=== PATIENT | male | born 1975 | race Caucasian/White ===

== ENCOUNTER → 2024-03-14 14:41 | Outpatient (REF) | payer OTHER, SELFPAY | LOC: RAD 14:41 | PROVIDERS: ATTENDING PHYSICIAN Emergency Medicine | DX: M25.522 Pain in left elbow (principal); M79.632 Pain in left forearm | CPT/HCPCS: 73080; 73090 ==

== ENCOUNTER 2024-05-17 03:18 | Emergency (ER) | payer OTHER, SELFPAY ==
[2024-05-17] VITALS (7 sets, daily range): BP systolic 120–191; BP diastolic 79–100; BMI 35.2
[2024-05-17] MEDS: PEPCID 20 MG IV (03:37)
[2024-05-17] MEDS: NSS 1000 IV (03:37)
[2024-05-17] MEDS: DECADRON 10 MG IV (03:38)
[2024-05-17] MEDS: BENADRYL 25 MG IV ×2 (03:38→05:18)
[2024-05-17 03:51] LABS: % Basophils 0.5 % (0-2); % Eosinophils 3.8 % (0-6); % Immature Granulocytes 0.2 % (0-0.5); % Lymphocytes 29.8 % (20.5-51.1); % Monocytes 7.2 % (1.7-9.3); % Neutrophils 58.5 % (42.2-75.2); Absolute Eosinophils 0.3 10^3/uL (0-0.7); Absolute Lymphocytes 2.5 10^3/uL (1.2-3.4); Absolute Monocytes 0.6 10^3/uL (0.1-0.6); Absolute Neutrophils 4.9 10^3/uL (1.4-6.5); Hematocrit 41.1 % (39.0-52.0); Hemoglobin 14.2 g/dL (13.0-18.0); Mean Corp Hgb Conc. 34.5 g/dL (33.0-37.0); Mean Corpuscular Hgb 31.9 pg (27.0-31.0); Mean Corpuscular Volume 92.4 fL (80.0-94.0); Mean Platelet Volume 11.5 fL (7.4-10.4); Nucleated Red Blood Cells % 0 % (-); Platelet Count 178 10^3/uL (130-400); Red Blood Cell Count 4.45 10^6/uL (4.70-6.10); Red Cell Dist. Width 12.4 % (11.5-14.5); White Blood Cell Count 8.4 10^3/uL (4.8-10.8)
--- NOTE | 2024-05-17 04:03 | ED.GENMED ---
History of Present Illness
<DO Kasey Mendoza Last Filed: 05/17/24 05:16>
General
Chief Complaint: Oral/Mouth Problem
Source: patient and spouse
Exam Limitations: none
Time Seen by Provider: 05/17/24 03:26
Nursing documentation reviewed up to this point in time: agreed with
History of Present Illness
History of Present Illness:
Pleasant 49-year-old male presents with tongue swelling. Patient was recently started on Keflex and Bactrim for bug bites. Patient states 1 hour prior to arrival he awakened with swelling of his tongue. He reports no difficulty swallowing or
respiratory distress. Denies fever, chills, nausea or vomiting. Denies chest pain. Reports no known allergies. Denies being on any MARIA G inhibitors or ARBs.
Review of Systems
<DO Kasey Mendoza Last Filed: 05/17/24 05:16>
Review of Systems
Allergies reviewed?: Yes
Other source history: family
All Other Systems: ROS reviewed and negative except as documented in HPI and ROS
Constitutional: Reports no symptoms
EENT: Reports mouth swelling
Respiratory: Reports no symptoms
Cardiac: Reports no symptoms
ABD/GI: Reports no symptoms
: Reports no symptoms
Musculoskeletal: Reports no symptoms
Skin: Reports no symptoms
Neurological: Reports no symptoms
Endocrine: Reports no symptoms
Hematologic/Lymphatic: Reports no symptoms
Psychiatric: Reports no symptoms
Phy Exam
<DO Kasey Mendoza Last Filed: 05/17/24 05:16>
General Physical Exam
General Presentation: well appearing and no apparent distress
General Skin: warm and dry
General Habitus: normal
General Mental: alert
General Hydration: appears well hydrated
ENT Exam
ENT Exam: swallowing well
Additional ENT: Swollen tongue consistent with angioedema
Eye Exam
Eye Exam: PERRL, cornea clear and conjunctiva normal
Cardiovascular Exam
Cardiovascular Exam: regular rate/rhythm, no edema, no murmur and normal peripheral pulses
Pulmonary Exam
Pulmonary Exam: lungs clear, no respiratory distress, no rales, no crackles, no rhonchi, no stridor, no wheezing and no cough
Gastrointestinal Exam
Gastrointestinal Exam: normal bowel sounds, non tender, soft, no organomegaly, no pulsatile mass and non distended
Neurological Exam
Neurological Exam: alert, oriented x3, no motor deficits and speech normal
Musculoskeletal Exam
Musculoskeletal Exam: full ROM and no edema
Skin Exam
Skin Exam: normal color, warm/dry, no rash and no petechia
Psychiatric Exam
Psychiatric Exam: normal mood/affect
Course
<Kaleb Holly, DO - Last Filed: 05/17/24 05:16>
Orders/Labs/Results
Orders:
Orders
05/17/24 03:26
Cardiac Monitoring- Treatment ONCE
0.9% Sodium Chloride 1000 ml [Nss] 1,000 ml IV BOLUS
Dexamethasone Sod Phosphate [Decadron] 10 mg IV NOW STA
Diphenhydramine [Benadryl] 25 mg IV NOW STA
Famotidine [Pepcid] 20 mg IV NOW STA
Pulse Ox/cont/shift [RESP] Stat
Quantity: 1
05/17/24 03:27
Electrocardiogram (*1) Stat
Reason for Study: Other
Other Reason for Exam: Allergy
EKG- Treatment ONCE
05/17/24 03:36
Complete Blood Count/With Diff Urgent
05/17/24 05:10
Diphenhydramine [Benadryl] 25 mg IV NOW STA
Abnormal Lab Results
05/17/24
03:36
RBC 4.45 L 10^6/uL
(4.70-6.10)
MCH 31.9 H pg
(27.0-31.0)
MPV 11.5 H fL
(7.4-10.4)
05/17/24 03:36
Vital Signs
Initial and Last Documented VS:
Initial Vital Signs
Pulse Resp BP Pulse Ox
96 18 191/100 99
05/17/24 03:20 05/17/24 03:20 05/17/24 03:20 05/17/24 03:20
Last Documented Vital Signs
Temp Pulse Resp BP Pulse Ox
98.1 F 80 11 130/79 98
05/17/24 07:43 05/17/24 07:06 05/17/24 07:06 05/17/24 07:06 05/17/24 07:06
<Jose Daniel Ruvalcaba, DO - Last Filed: 05/17/24 07:48>
Orders/Labs/Results
Orders:
Orders
05/17/24 03:26
Cardiac Monitoring- Treatment ONCE
0.9% Sodium Chloride 1000 ml [Nss] 1,000 ml IV BOLUS
Dexamethasone Sod Phosphate [Decadron] 10 mg IV NOW STA
Diphenhydramine [Benadryl] 25 mg IV NOW STA
Famotidine [Pepcid] 20 mg IV NOW STA
Pulse Ox/cont/shift [RESP] Stat
Quantity: 1
05/17/24 03:27
Electrocardiogram (*1) Stat
Reason for Study: Other
Other Reason for Exam: Allergy
EKG- Treatment ONCE
05/17/24 03:36
Complete Blood Count/With Diff Urgent
05/17/24 05:10
Diphenhydramine [Benadryl] 25 mg IV NOW STA
Abnormal Lab Results
05/17/24
03:36
RBC 4.45 L 10^6/uL
(4.70-6.10)
MCH 31.9 H pg
(27.0-31.0)
MPV 11.5 H fL
(7.4-10.4)
05/17/24 03:36
Vital Signs
Initial and Last Documented VS:
Initial Vital Signs
Pulse Resp BP Pulse Ox
96 18 191/100 99
05/17/24 03:20 05/17/24 03:20 05/17/24 03:20 05/17/24 03:20
Last Documented Vital Signs
Temp Pulse Resp BP Pulse Ox
98.1 F 80 11 130/79 98
05/17/24 07:43 05/17/24 07:06 05/17/24 07:06 05/17/24 07:06 05/17/24 07:06
<Jose Daniel Ruvalcaba, DO - Last Filed: 05/17/24 07:48>
*Critical Care Note
Total Time (30-74mins, 75-104mins- exclusive of procedures): Not Applicable
<Kaleb Holly, DO - Last Filed: 05/17/24 05:16>
Update Note
Update Note:
05/17/2024 0425 AM: Patient's showing some improvement
<Jose Daniel Ruvalcaba, DO - Last Filed: 05/17/24 07:48>
Update Note
Update Note:
05/17/2024 0425 AM: Patient's showing some improvement
Dr. Ruvalcaba note, patient with improved tongue angioedema. Also mildly infected appearing left lower leg wound. Will treat with doxycycline. Patient will stop Keflex and Bactrim.
ED Attending Note
<Kaleb Holly, DO - Last Filed: 05/17/24 05:16>
-
Portions of this chart may have been created with voice recognition software.� Occasional wrong word or��sound alike� substitutions may have occurred due to the inherent limitations of voice recognition software.
Discharge Plan
Departure
Patient Disposition: Home (Routine Discharge)
Date of Disposition: 05/17/24
Time of Disposition: 07:44
Patient with high blood pressure during this ER visit?: Yes
Condition: Good
Discharge Problem:
Angioedema, Insect bite of left leg
Instructions: Angioedema, Allergic Reaction ED, Insect Bites and Stings ED, BLOOD PRESSURE
Prescriptions:
New
epinephrine [EpiPen] 0.3 mg/0.3 mL Auto-Injector
0.3 mg IM .STAT PRN (Reason: anaphylaxis) Qty: 1 0RF
prednisone 50 mg Tablet
50 mg PO DAILY Qty: 5 0RF
famotidine [Pepcid] 40 mg tablet
40 mg PO DAILY Qty: 10 0RF
diphenhydramine HCl [Benadryl] 25 mg capsule
25 mg PO TID PRN (Reason: allergy symptoms) Qty: 14 0RF
doxycycline hyclate 100 mg tablet
100 mg PO BID Qty: 20 0RF
No Action
sulfamethoxazole-trimethoprim [Sulfamethoprim DS] 800-160 mg Tablet
1 tab PO BID
cephalexin 500 mg Capsule
500 mg PO Q12H
Referrals:
Dayan Hoyos MD [Family Provider] -
Interventions
Interventions:
*Risk Screen - Suicide Last Done: 05/17/24 03:31
*General Assessment Last Done: 05/17/24 03:29
*Neglect/Abuse Screening Last Done: 05/17/24 03:30
ED- Fall Risk Assessment Last Done: 05/17/24 03:32
*ED COVID-19 Vaccine History Last Done: 05/17/24 03:29
Discharge Date and Time
Print Language: TELUGU
== END 2024-05-17 07:57 | disposition home or self-care (01) ==
LOC: EMR 03:18
PROVIDERS: EMERGENCY PHYSICIAN Student in an Organized Health Care Education/Training Program; FAMILY PHYSICIAN Emergency Medicine
DX: T78.3XXA Angioneurotic edema, initial encounter (principal); S80.862A Insect bite (nonvenomous), left lower leg, initial encounter; W57.XXXA Bitten or stung by nonvenomous insect and other nonvenomous arthropods, initial encounter
CPT/HCPCS: 99283; 96374; 96375; 96376; 85025; 93005

== ENCOUNTER 2024-05-28 12:11 | Emergency (ER) | payer OTHER, SELFPAY ==
[2024-05-28 12:21] VITALS: BP 116/76; BMI 33.0
[2024-05-28 12:31] VITALS: BP 134/91
[2024-05-28 13:00] VITALS: BP 133/93
[2024-05-28 14:00] VITALS: BP 122/85
--- NOTE | 2024-05-28 14:23 | ED.GENMED ---
History of Present Illness
<Li Bo PA-C - Last Filed: 05/28/24 21:29>
General
Chief Complaint: Allergic Reaction
Source: patient
Exam Limitations: none
Time Seen by Provider: 05/28/24 14:04
Nursing documentation reviewed up to this point in time: agreed with
History of Present Illness
History of Present Illness:
This is a 49 y/o male with no past medical history presenting to the emergency department today with concerns of lip swelling. Patient reports that he woke up at around 2 AM this morning when he noticed some mild lip swelling. Patient thought
nothing of it at the time went back to sleep. Patient woke up this morning and stated that his symptoms were still there. He subsequently took Benadryl at home. He went to urgent care where he received an IM dose of epinephrine at 7:30 am. Patient
states that he had no trouble breathing or chest tightness, no abdominal pain or nausea or vomiting at any point. Patient reported to urgent care where they gave him an IM dose of epinephrine and advised him to report to the emergency department.
Of note, patient reports that he has been on a new medication doxycycline for a insect bite and surrounding cellulitis he has had. He has been on this for 2 weeks and today he started developing these allergic symptoms. Of note, on 05/17/2024,
patient was seen by his primary for the same symptoms of cellulitis and bug bite where he was put on Keflex and Bactrim. After the first dose, patient developed angioedema and he was seen in the emergency department and treated and sent home with
an EpiPen but he has not picked this up from the pharmacy yet.
Patient was waiting in the emergency department and in the waiting room for around 2 hours before he was seen by me. Patient states that his symptoms have not gotten worse while he has been here.
Review of Systems
<Li Bo PA-C - Last Filed: 05/28/24 21:29>
Review of Systems
All Other Systems: ROS reviewed and negative except as documented in HPI and ROS
Phy Exam
<Li Bo PA-C - Last Filed: 05/28/24 21:29>
Physical Exam
Physical Exam:
General: Patient is well appearing and in no acute distress; non-toxic
Skin: Warm and dry, small area of urticaria below the left eyebrow. Small superficial circular shallow wound on the left anterior lower extremity, no active drainage, not actively bleeding. Small area of erythema that is slightly tender to the
touch.
Head: Normocephalic, atraumatic
Eyes: Sclera non-icteric. EOMs intact.
Cardiac: Regular rate and rhythm, no murmurs
Peripheral Vascular: No lower extremity swelling or edema.
Pulm: Normal respiratory effort, no wheezes, rales, rhonchi bilaterally.
Abdomen: No abdominal tenderness to palpation.
Neuro: CN II-XII intact, no focal neurologic deficits.
Psychiatric: Appropriate mood and affect.
Course
<LISA Villagomez Last Filed: 05/28/24 21:29>
Orders/Labs/Results
Orders:
Orders
05/28/24 14:33
0.9% Sodium Chloride 1000 ml [Nss] 1,000 ml IV BOLUS
Famotidine [Pepcid] 20 mg IV NOW STA
05/28/24 14:42
Dexamethasone Sod Phosphate [Decadron] 10 mg IV NOW STA
05/28/24 15:06
Complete Blood Count/With Diff Urgent
Comprehensive Metabolic Panel Urgent
05/28/24 16:04
Diphenhydramine [Benadryl] 25 mg IV NOW STA
Abnormal Lab Results
05/28/24
15:06
WBC 11.9 H 10^3/uL
(4.8-10.8)
MCH 31.7 H pg
(27.0-31.0)
MPV 11.7 H fL
(7.4-10.4)
Abs Immat Gran (auto) 0.1 H 10^3/uL
(0-0.05)
Absolute Neuts (auto) 8.4 H 10^3/uL
(1.4-6.5)
Absolute Monos (auto) 0.7 H 10^3/uL
(0.1-0.6)
Carbon Dioxide 31 H mmol/L
(22-30)
Glucose 146 H mg/dl
(70-99)
Total Protein 5.9 L g/dl
(6.3-8.2)
05/28/24 15:06
05/28/24 15:06
Vital Signs
Initial and Last Documented VS:
Initial Vital Signs
Temp Pulse Resp BP Pulse Ox
97.8 F 110 16 116/76 96
05/28/24 12:21 05/28/24 12:21 05/28/24 12:21 05/28/24 12:21 05/28/24 12:21
Last Documented Vital Signs
Temp Pulse Resp BP Pulse Ox
97.8 F 74 12 133/106 97
05/28/24 12:21 05/28/24 16:15 05/28/24 16:15 05/28/24 16:00 05/28/24 13:12
<Leticia Perez, - Last Filed: 05/28/24 15:35>
Orders/Labs/Results
Orders:
Orders
05/28/24 14:33
0.9% Sodium Chloride 1000 ml [Nss] 1,000 ml IV BOLUS
Famotidine [Pepcid] 20 mg IV NOW STA
05/28/24 14:42
Dexamethasone Sod Phosphate [Decadron] 10 mg IV NOW STA
05/28/24 15:06
Complete Blood Count/With Diff Urgent
Comprehensive Metabolic Panel Urgent
05/28/24 16:04
Diphenhydramine [Benadryl] 25 mg IV NOW STA
Abnormal Lab Results
05/28/24
15:06
WBC 11.9 H 10^3/uL
(4.8-10.8)
MCH 31.7 H pg
(27.0-31.0)
MPV 11.7 H fL
(7.4-10.4)
Abs Immat Gran (auto) 0.1 H 10^3/uL
(0-0.05)
Absolute Neuts (auto) 8.4 H 10^3/uL
(1.4-6.5)
Absolute Monos (auto) 0.7 H 10^3/uL
(0.1-0.6)
Carbon Dioxide 31 H mmol/L
(22-30)
Glucose 146 H mg/dl
(70-99)
Total Protein 5.9 L g/dl
(6.3-8.2)
05/28/24 15:06
05/28/24 15:06
Vital Signs
Initial and Last Documented VS:
Initial Vital Signs
Temp Pulse Resp BP Pulse Ox
97.8 F 110 16 116/76 96
05/28/24 12:21 05/28/24 12:21 05/28/24 12:21 05/28/24 12:21 05/28/24 12:21
Last Documented Vital Signs
Temp Pulse Resp BP Pulse Ox
97.8 F 74 12 133/106 97
05/28/24 12:21 05/28/24 16:15 05/28/24 16:15 05/28/24 16:00 05/28/24 13:12
Deniselt;Li Bo PA-C - Last Filed: 05/28/24 21:29>
MDM/Problems Addressed
Differential Diagnosis Includes:
ddx include angioedema, anaphylaxis, contact dermatitis, drug eruption, seasonal allergies
MDM/Problems Addressed:
Allergic Reaction:
This is a 49 y/o male with no past medical history presenting to the emergency department today with concerns of lip swelling. Patient states that he recently started an antibiotic doxycycline for a persistent lower extremity rash. Patient has been
on this for 2 weeks before he started having the symptoms today. Of note, patient similar episode a few weeks ago after different antibiotic. Patient received a dose of epinephrine at 7:30 AM and since that time has had no new symptoms and no
worsening of his current symptoms. Patient was given Benadryl, a dose of Decadron, famotidine. IV here in the emergency department. CBC and CMP unremarkable. Patient reassessed multiple times and patient stable. Patient states that he has not
needed prescription for EpiPen's but at his pharmacy from last time he will pick it up today. Discussed podiatry follow-up for his persistent wound and discussed allergy follow-up for to determine the source of his allergy. Patient stable for
discharge.
Chronic conditions affecting care:
n/a
Acute Exacerbation and/or Progression of Chronic Illness:
n/a
<Li Bo PA-C - Last Filed: 05/28/24 21:29>
*Pulse Oximetry
Patient hypoxic: no
*Critical Care Note
Total Time (30-74mins, 75-104mins- exclusive of procedures): Not Applicable
Data Reviewed
Review of Other/Old Records Reveals: Records (Reviewed previous ER physician documentation from 05/17/2024 patient was seen for angioedema)
Source: patient and records
<Li Bo PA-C - Last Filed: 05/28/24 21:29>
Patient Management
Escalation/DeEscalation of care consider admission/obs:
Admit not indicated. Patient stable for discharge
ED Attending Note
<Li Bo PA-C - Last Filed: 05/28/24 21:29>
-
Portions of this chart may have been created with voice recognition software.� Occasional wrong word or��sound alike� substitutions may have occurred due to the inherent limitations of voice recognition software.
<Leticia Perez DO - Last Filed: 05/28/24 15:35>
ED Attending Note
Patient seen and examined by attending physician: Yes
I performed the substantive portion of visit, reviewed & personally made and approve the management plan that is documented in note by myself or ALEK.: Yes
I performed a history and physical exam of patient and discussed management with resident, I reviewed resident's note and agree with documented findings and plan of care.: Yes
ED Attending Note:
Patient seen and evaluated at bedside, 49-year-old male presenting for concern of allergic reaction. Patient seen on 05/17 after a bug bite to his left lower extremity. Patient had been treated with Bactrim, subsequently had angioedema. He was
switched to doxycycline. Patient on his eighth day of doxycycline. Today started to have lip swelling, went to urgent care and received epinephrine at 7:30 AM. Feels that the lip swelling is improving. Denies difficulty breathing. Reports that
he is still having some redness and pain to his left lower extremity. Denies fever. Denies numbness or tingling to the extremity. Denies known history of allergic reactions in the past. Vital signs on arrival significant for tachycardia.
On exam, patient well-appearing, no acute distress. No increased work of breathing. No stridorous respirations. Patient does have some mild swelling to the lower lip. Normal phonation of voice. Do suspect allergic reaction, unclear to what.
Lower suspicion for doxycycline, given the patient has been taking it for 8 days. Regardless, patient did receive epinephrine, will continue to monitor. Will also administer Decadron. On examination of the lower extremity. No significant signs
of infection. There is circumferential area where patient was bit at the medial aspect of the ankle. No surrounding erythema or swelling. No neurovascular compromise. Do not feel patient requires any additional antibiotics. Patient reports that
the wound has been there for a month however, reports history of poor circulation. Advise follow-up with podiatry versus wound care, as well as an case management assistant for formal allergy testing. Otherwise feel stable for discharge with continued outpatient
follow-up.
Discharge Plan
Departure
Patient Disposition: Home (Routine Discharge)
Date of Disposition: 05/28/24
Time of Disposition: 16:01
Patient with high blood pressure during this ER visit?: No
Condition: Good
Discharge Problem:
Allergic reaction, Insect bite of left leg
Instructions: Hives (DC), Allergic Reaction ED
Prescriptions:
No Action
sulfamethoxazole-trimethoprim [Sulfamethoprim DS] 800-160 mg Tablet
1 tab PO BID
cephalexin 500 mg Capsule
500 mg PO Q12H
epinephrine [EpiPen] 0.3 mg/0.3 mL Auto-Injector
0.3 mg IM .STAT PRN (Reason: anaphylaxis) Qty: 1 0RF
prednisone 50 mg Tablet
50 mg PO DAILY Qty: 5 0RF
famotidine [Pepcid] 40 mg tablet
40 mg PO DAILY Qty: 10 0RF
diphenhydramine HCl [Benadryl] 25 mg capsule
25 mg PO TID PRN (Reason: allergy symptoms) Qty: 14 0RF
doxycycline hyclate 100 mg tablet
100 mg PO BID Qty: 20 0RF
Referrals:
Dayan Hoyos MD [Family Provider] -
Donna Sorenson DPM [Specified Professional Personl] - Call in 1-3 days for appt
Maksim Ignacio MD [Community] - Call in 1-3 days for appt
Activity Restrictions/Additional Instructions:
As discussed, please call the attached numbers to follow-up with case management assistant and air sealing technician.
Please return emergency department should you experience any acute worsening of your symptoms, shortness of breath, fevers or chills, chest tightness or pain, abdominal pain, nausea or vomiting, weakness, difficulty walking, or any other signs or
symptoms concerning to you.
Please roll picker the epi pen from your pharmacy.
Please follow-up with your primary care provider.
Interventions
Interventions:
*Risk Screen - Suicide Last Done: 05/28/24 12:21
*General Assessment Last Done: 05/28/24 12:51
*Neglect/Abuse Screening Last Done: 05/28/24 12:21
ED- Fall Risk Assessment Last Done: 05/28/24 12:21
*ED COVID-19 Vaccine History Last Done: 05/28/24 12:51
*Nursing Disposition Last Done: 05/28/24 16:31
ED- Cardiac Assessment Last Done: 05/28/24 12:54
ED- Pulmonary Assessment Last Done: 05/28/24 13:13
ED-Skin Assessment Last Done: 05/28/24 12:55
Discharge Date and Time
Discharge Date/Time: 05/28/24 16:31
Print Language: [id number]
[2024-05-28 15:00] VITALS: BP 116/74
[2024-05-28] MEDS: NSS 1000 IV (15:08)
[2024-05-28] MEDS: DECADRON 10 MG IV (15:09)
[2024-05-28] MEDS: PEPCID 20 MG IV (15:09)
[2024-05-28 15:22] LABS: % Basophils 0.4 % (0-2); % Eosinophils 1.4 % (0-6); % Immature Granulocytes 0.4 % (0-0.5); % Lymphocytes 20.7 % (20.5-51.1); % Neutrophils 71.1 % (42.2-75.2); Absolute Basophils 0.1 10^3/uL (0-0.2); Absolute Eosinophils 0.2 10^3/uL (0-0.7); Absolute Immature Granulocytes 0.1 10^3/uL (0-0.05); Absolute Lymphocytes 2.5 10^3/uL (1.2-3.4); Absolute Monocytes 0.7 10^3/uL (0.1-0.6); Absolute Neutrophils 8.4 10^3/uL (1.4-6.5); Hematocrit 43.1 % (39.0-52.0); Mean Corp Hgb Conc. 34.8 g/dL (33.0-37.0); Mean Corpuscular Hgb 31.7 pg (27.0-31.0); Mean Corpuscular Volume 91.1 fL (80.0-94.0); Mean Platelet Volume 11.7 fL (7.4-10.4); Nucleated Red Blood Cells % 0 % (-); Platelet Count 188 10^3/uL (130-400); Red Blood Cell Count 4.73 10^6/uL (4.70-6.10); Red Cell Dist. Width 12.1 % (11.5-14.5); White Blood Cell Count 11.9 10^3/uL (4.8-10.8)
[2024-05-28 15:31] LABS: ALT (SGPT) 44 U/L (0-50); AST (SGOT) 23 U/L (17-59); Albumin 3.7 g/dl (3.5-5.0); Alkaline Phosphatase 76 U/L (38-126); Blood Urea Nitrogen 19 mg/dl (9-20); Calcium 9.4 mg/dl (8.4-10.2); Carbon Dioxide 31 mmol/L (22-30); Chloride 103 mmol/L (98-107); Estimated Creatinine Clearance 105 ml/min; Glucose 146 mg/dl (70-99); Potassium 4.4 mmol/L (3.5-5.1); Sodium 139 mmol/L (135-145); Total Bilirubin 0.6 mg/dl (0.2-1.3); Total Protein 5.9 g/dl (6.3-8.2); eGFR > 60.00
[2024-05-28 16:00] VITALS: BP 133/106
[2024-05-28] MEDS: BENADRYL 25 MG IV (16:21)
== END 2024-05-28 16:31 | disposition home or self-care (01) ==
LOC: EMR 12:11
PROVIDERS: Physician Assistant; EMERGENCY PHYSICIAN Student in an Organized Health Care Education/Training Program; FAMILY PHYSICIAN Emergency Medicine
DX: T78.40XA Allergy, unspecified, initial encounter (principal); S80.862A Insect bite (nonvenomous), left lower leg, initial encounter; W57.XXXA Bitten or stung by nonvenomous insect and other nonvenomous arthropods, initial encounter
CPT/HCPCS: 99284; 96374; 96375 ×2; 96361; 80053; 85025

== ENCOUNTER 2024-05-31 07:12 | Emergency (ER) | payer OTHER, SELFPAY ==
[2024-05-31] VITALS (8 sets, daily range): BP systolic 115–148; BP diastolic 74–96; BMI 33.7
--- NOTE | 2024-05-31 07:35 | ED.GENMED ---
History of Present Illness
<Davida Nash PA-C - Last Filed: 05/31/24 14:11>
General
Chief Complaint: Allergic Reaction
Source: patient
Exam Limitations: none
Time Seen by Provider: 05/31/24 07:19
Nursing documentation reviewed up to this point in time: agreed with
History of Present Illness
History of Present Illness:
pt is a 49 y/o M with no previosu medical problesm
this is pt's 3rd visit for angioedema sxs
he says he was in [facility] and got some bug bites to both ankles
he had pain/redness, swelling to the L ankle and was started on bactrim and keflex
within 1 dose of the bactrim, pt present for tongue swelling c/w angioedema
he had already gone to and gotten a dose of epi and came here
they gave him decadron, pepcid, benadryl, and another dose of benadryl and ultiamtely improved to go home
he was given 5 days pred
epi pen and switched to doxycycline rather than the bactrim/keflex
then pt took the doxy for 1 week before presenting on 05/28 for lower lip swelling
pt says that he resolved with iv decadron, benadryl and was discharged,
stopped all abx
this morning woke up 630 am with L tongue and right lower lip swelling
slight muffling of voice
tolerating secretions
no fever
does feel that the redness to his L ankle is better than before but still present
no trouble breathing
Review of Systems
<Davida Nash PA-C - Last Filed: 05/31/24 14:11>
Review of Systems
Allergies reviewed?: Yes
All Other Systems: Not applicable
Phy Exam
<LISA Barrios Last Filed: 05/31/24 14:11>
Physical Exam
Physical Exam:
GENERAL: Alert , in no apparent distress
EYE: pupils equal and reactive
NECK: Supple
ENT: o/p clr, mmm.
MODERATE L tongue swelling, thickened
dec view of posterior pharynx
very trace R lower lip swelling
CARDIAC: Regular rate and rhythm .
LUNGS: Clear breath sounds bilaterally, no acute respiratory distress, no wheezes/rales/rhonchi
ABDOMEN: Soft, without focal tenderness, no r/g, no cvat, normal bowel sounds
NEUROLOGICAL: Alert and oriented, no focal neuro deficits
SKIN: Warm and dry, skin intact.
MUSCULOSKELETAL: No edema, well perfused. neg aysha's sign
PSYCH: Normal and appropriate interaction.
Course
<Davida Nash PA-C - Last Filed: 05/31/24 14:11>
Orders/Labs/Results
Orders:
Orders
05/31/24 07:28
Diphenhydramine [Benadryl] 25 mg IV NOW STA
EPINEPHrine PF [Adrenalin] 0.3 mg IM NOW STA
MethylPREDNISolone PF [Solu-Medrol Pf] 125 mg IV NOW STA
05/31/24 07:35
Complete Blood Count/With Diff Urgent
Comprehensive Metabolic Panel Urgent
Lyme Progressive Urgent
05/31/24 10:13
Diphenhydramine [Benadryl] 25 mg IV NOW STA
Famotidine [Pepcid] 20 mg IV NOW STA
Abnormal Lab Results
05/31/24
07:35
WBC 12.1 H 10^3/uL
(4.8-10.8)
MCH 31.6 H pg
(27.0-31.0)
MPV 11.5 H fL
(7.4-10.4)
Abs Immat Gran (auto) 0.1 H 10^3/uL
(0-0.05)
Absolute Neuts (auto) 8.0 H 10^3/uL
(1.4-6.5)
Absolute Monos (auto) 0.7 H 10^3/uL
(0.1-0.6)
Immature Gran % 0.7 H %
(0-0.5)
Glucose 123 H mg/dl
(70-99)
Total Protein 6.2 L g/dl
(6.3-8.2)
05/31/24 07:35
05/31/24 07:35
Vital Signs
Initial and Last Documented VS:
Initial Vital Signs
Temp Pulse Resp BP Pulse Ox
97.8 F 92 18 148/96 97
05/31/24 07:14 05/31/24 07:14 05/31/24 07:14 05/31/24 07:14 05/31/24 07:14
Last Documented Vital Signs
Temp Pulse Resp BP Pulse Ox
97.4 F 84 16 129/84 97
05/31/24 12:43 05/31/24 12:43 05/31/24 12:43 05/31/24 12:43 05/31/24 12:43
<Cesar Copeland, DO - Last Filed: 05/31/24 10:14>
Orders/Labs/Results
Orders:
Orders
05/31/24 07:28
Diphenhydramine [Benadryl] 25 mg IV NOW STA
EPINEPHrine PF [Adrenalin] 0.3 mg IM NOW STA
MethylPREDNISolone PF [Solu-Medrol Pf] 125 mg IV NOW STA
05/31/24 07:35
Complete Blood Count/With Diff Urgent
Comprehensive Metabolic Panel Urgent
Lyme Progressive Urgent
05/31/24 10:13
Diphenhydramine [Benadryl] 25 mg IV NOW STA
Famotidine [Pepcid] 20 mg IV NOW STA
Abnormal Lab Results
05/31/24
07:35
WBC 12.1 H 10^3/uL
(4.8-10.8)
MCH 31.6 H pg
(27.0-31.0)
MPV 11.5 H fL
(7.4-10.4)
Abs Immat Gran (auto) 0.1 H 10^3/uL
(0-0.05)
Absolute Neuts (auto) 8.0 H 10^3/uL
(1.4-6.5)
Absolute Monos (auto) 0.7 H 10^3/uL
(0.1-0.6)
Immature Gran % 0.7 H %
(0-0.5)
Glucose 123 H mg/dl
(70-99)
Total Protein 6.2 L g/dl
(6.3-8.2)
05/31/24 07:35
05/31/24 07:35
Vital Signs
Initial and Last Documented VS:
Initial Vital Signs
Temp Pulse Resp BP Pulse Ox
97.8 F 92 18 148/96 97
05/31/24 07:14 05/31/24 07:14 05/31/24 07:14 05/31/24 07:14 05/31/24 07:14
Last Documented Vital Signs
Temp Pulse Resp BP Pulse Ox
97.4 F 84 16 129/84 97
05/31/24 12:43 05/31/24 12:43 05/31/24 12:43 05/31/24 12:43 05/31/24 12:43
<Davida Nash PA-C - Last Filed: 05/31/24 14:11>
MDM/Problems Addressed
Differential Diagnosis Includes:
ANGIOEDEMA, allergic reaction, anaphylaxis
MDM/Problems Addressed:
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
startd 7/2 after 1 dose abx
was his tongue then; treated with epi and benadryl an steroids and resolved; went home with steroids
siwtched abx and then had another episode 3 days ago of his lip swelling
treated without epi, but with benadryl and sterois
d/c home without rx, stop all abx
then this mornig woke upw ith lip and tongue
tolerating secretions, no SOB
no known congenital or hereditary angioedema in the family
pt had mild to mod L sided tongue swelling and minimal right lower lip swelling
voice seemed a little muffled
tolerating secrtions
d/w ed attending, epi/benadryl thought to not be overly helpful but unlikely to be harmful
solu-medrol as well
pt had minimal improvement and got another dose of benadryl and was observed
he has TRACE tongue swelling
was offered obs amdission but he declined
d/c hoem with steroids, pepcid, zyrtec
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
<Davida Nash PA-C - Last Filed: 05/31/24 14:11>
*Critical Care Note
Total Time (30-74mins, 75-104mins- exclusive of procedures): Not Applicable
ED Attending Note
<Davida Nash PA-C - Last Filed: 05/31/24 14:11>
-
Portions of this chart may have been created with voice recognition software.� Occasional wrong word or��sound alike� substitutions may have occurred due to the inherent limitations of voice recognition software.
<Cesar oCpeland DO - Last Filed: 05/31/24 10:14>
ED Attending Note
Patient seen and examined by attending physician: Yes
I performed the substantive portion of visit, reviewed & personally made and approve the management plan that is documented in note by myself or ALEK.: Yes
ED Attending Note:
49-year-old male third visit with tongue and lip swelling, initially thought to be due to antibiotics, not on an MARIA G inhibitor, previously responded to steroids and Benadryl and epi after doses here still looks fairly swollen no stridor no drooling,
will continue to monitor, consideration for admission this is his third visit
Discharge Plan
Departure
Patient Disposition: Home (Routine Discharge)
Date of Disposition: 05/31/24
Time of Disposition: 12:09
Patient with high blood pressure during this ER visit?: No
Condition: Fair
Covid-19: Not Applicable
Discharge Problem:
Angioedema
Instructions: Angioedema
Prescriptions:
New
prednisone 50 mg tablet
50 mg PO DAILY Qty: 5 0RF
cetirizine [Zyrtec] 10 mg tablet
10 mg PO DAILY Qty: 30 0RF
famotidine [Pepcid] 20 mg tablet
20 mg PO BID Qty: 14 0RF
No Action
doxycycline hyclate 100 mg tablet
100 mg PO BID Qty: 20 0RF
Patient Comments:
05/31/24: patient states he stopped on Thursday, has 2 days left in his 10 day schedule.
naproxen sodium [Aleve] 220 mg Tablet
440 mg PO DAILYPRN PRN (Reason: mild pain)
diphenhydramine HCl [Benadryl] 25 mg capsule
25 mg PO TIDPRN PRN (Reason: allergy symptoms)
Referrals:
Dayan Hoyos MD [Family Provider] -
Maksim Ignacio MD [Community] - Follow up in 5-7 days
Activity Restrictions/Additional Instructions:
WE ARE NOT SURE THE CAUSE FOR YOUR ANGIOEDEMA
SEE AN LEATHER FITTER
BENADRYL 2 TIMES TODAY, 50 MG EVERY 6 HOURS
THEN STARTING TOMORROW USE ZYRTEC 10 MG ONCE A DAY FOR A MONTH
PEPCID 20 MG TWICE A DAY FOR 7 DAYS
AND TAKE PREDNISONE 50 MG ONCE A DAY STARTING TOMORROW
RETURN IMMEDIATELY FOR WORSENING SWELLING TO TONGUE OR TROUBE BREATHING
Interventions
Interventions:
*Risk Screen - Suicide Last Done: 05/31/24 07:16
*General Assessment Last Done: 05/31/24 07:16
*Neglect/Abuse Screening Last Done: 05/31/24 07:16
*ED COVID-19 Vaccine History Last Done: 05/31/24 07:16
*Nursing Disposition Last Done: 05/31/24 12:43
ED- Cardiac Assessment Last Done: 05/31/24 08:21
ED- Pulmonary Assessment Last Done: 05/31/24 08:01
ED-Skin Assessment Last Done: 05/31/24 08:26
Discharge Date and Time
Discharge Date/Time: 05/31/24 12:48
Print Language: GIBRALTARIAN
[2024-05-31] MEDS: BENADRYL 25 MG IV ×2 (07:37→10:19)
[2024-05-31] MEDS: SOLU-MEDROL PF 125 MG IV (07:39)
[2024-05-31] MEDS: ADRENALIN 0.3 MG IM (07:41)
[2024-05-31 07:46] LABS: % Basophils 0.4 % (0-2); % Eosinophils 2.2 % (0-6); % Immature Granulocytes 0.7 % (0-0.5); % Lymphocytes 24.9 % (20.5-51.1); % Monocytes 5.9 % (1.7-9.3); % Neutrophils 65.9 % (42.2-75.2); Absolute Basophils 0.1 10^3/uL (0-0.2); Absolute Eosinophils 0.3 10^3/uL (0-0.7); Absolute Immature Granulocytes 0.1 10^3/uL (0-0.05); Absolute Monocytes 0.7 10^3/uL (0.1-0.6); Hematocrit 45.3 % (39.0-52.0); Hemoglobin 15.4 g/dL (13.0-18.0); Mean Corpuscular Hgb 31.6 pg (27.0-31.0); Mean Corpuscular Volume 92.8 fL (80.0-94.0); Mean Platelet Volume 11.5 fL (7.4-10.4); Nucleated Red Blood Cells % 0 % (-); Platelet Count 166 10^3/uL (130-400); Red Blood Cell Count 4.88 10^6/uL (4.70-6.10); Red Cell Dist. Width 12.2 % (11.5-14.5); White Blood Cell Count 12.1 10^3/uL (4.8-10.8)
[2024-05-31 07:58] LABS: ALT (SGPT) 33 U/L (0-50); AST (SGOT) 21 U/L (17-59); Albumin 3.9 g/dl (3.5-5.0); Alkaline Phosphatase 81 U/L (38-126); Blood Urea Nitrogen 16 mg/dl (9-20); Calcium 9.2 mg/dl (8.4-10.2); Carbon Dioxide 30 mmol/L (22-30); Chloride 106 mmol/L (98-107); Estimated Creatinine Clearance 117 ml/min; Glucose 123 mg/dl (70-99); Potassium 4.3 mmol/L (3.5-5.1); Sodium 139 mmol/L (135-145); Total Bilirubin 0.9 mg/dl (0.2-1.3); Total Protein 6.2 g/dl (6.3-8.2); eGFR > 60.00
[2024-05-31] MEDS: PEPCID 20 MG IV (10:17)
[2024-06-01 15:07] LABS: Lyme Antibody Screen, EIA Negative (Negative)
== END 2024-05-31 12:48 | disposition home or self-care (01) ==
LOC: EMR 07:12
PROVIDERS: Physician Assistant; EMERGENCY PHYSICIAN Emergency Medicine; FAMILY PHYSICIAN Emergency Medicine
DX: T78.3XXA Angioneurotic edema, initial encounter (principal); X58.XXXA Exposure to other specified factors, initial encounter
CPT/HCPCS: 99282; 96374; 96375; 96376; 80053; 85025; 86618

== ENCOUNTER → 2024-06-23 07:55 | Outpatient (REF) | payer OTHER, SELFPAY | LOC: WOUND 07:55 | PROVIDERS: ATTENDING PHYSICIAN Surgery; FAMILY PHYSICIAN Emergency Medicine | DX: S80.862A Insect bite (nonvenomous), left lower leg, initial encounter (principal); W57.XXXA Bitten or stung by nonvenomous insect and other nonvenomous arthropods, initial encounter; I87.2 Venous insufficiency (chronic) (peripheral); I73.9 Peripheral vascular disease, unspecified; R73.03 Prediabetes; F17.200 Nicotine dependence, unspecified, uncomplicated | CPT/HCPCS: 99204 ==

== ENCOUNTER → 2024-08-18 07:43 | Outpatient (REF) | payer OTHER, SELFPAY | LOC: RAD 07:43 | PROVIDERS: ATTENDING PHYSICIAN Surgery; FAMILY PHYSICIAN Emergency Medicine | DX: I73.9 Peripheral vascular disease, unspecified (principal); I87.2 Venous insufficiency (chronic) (peripheral); W57.XXXS Bitten or stung by nonvenomous insect and other nonvenomous arthropods, sequela | CPT/HCPCS: 93922; 93925; 93970 ==